=== PATIENT | male | born 1965 | race Caucasian/White ===

== ENCOUNTER → 2021-08-06 11:29 | Outpatient (CLI) | payer BC, SELFPAY ==
--- NOTE | 2021-08-06 11:46 | DI.RAD_ITS ---
Exam(s) XR WRIST RT COMPLETE EXAM: XR WRIST RT COMPLETE CLINICAL HISTORY: PAIN IN RT WRIST TECHNIQUE: COMPARISON: No exams were available for comparison FINDINGS: Three views were obtained. Alignment appears within normal limits. No fracture identified. IMPRESSION: RADIATION DOSE DELIVERED: Total DLP
--- NOTE | 2021-08-06 12:03 | DI.VRAD_ITS ---
PROCEDURE INFORMATION: Exam: XR Right Wrist Exam date and time: 08/06/2021 11:41 AM Age: 56 years old Clinical indication: Pain; Wrist; Right; Patient HX: Fall while hiking 1 wk ago TECHNIQUE: Imaging protocol: XR Right wrist. Views: 3 or more views. COMPARISON: No relevant prior studies available. FINDINGS: Bones/joints: Normal. Soft tissues: Normal. IMPRESSION: No acute findings. Dictated and Authenticated by: David Jim MD. Ordering:MARY Barahona MD
== END ==
PROVIDERS: PCP Nurse Practitioner Family; Visit Provider Nurse Practitioner Family
DX: M25.531 Pain in right wrist (principal)
CPT/HCPCS: 73110

== ENCOUNTER 2021-08-17 03:07 | Outpatient (CLI) | payer BC, SELFPAY ==
[2021-08-17 09:11] LABS: Hemoglobin A1C 5.4 % (<5.7)
[2021-08-17 09:49] LABS: Calculated LDL 102 mg/dL (<100); Cholesterol 187 mg/dL (<200); HDL Cholesterol 51 mg/dL (40-60); Triglyceride 173 mg/dL (<150)
[2021-08-17 20:22] LABS: PSA, Screening 1.1 ng/mL (<=3.5)
== END 2021-08-17 03:08 | disposition home or self-care (01) ==
LOC: LBO 03:07
PROVIDERS: PCP Nurse Practitioner Family; Visit Provider Nurse Practitioner Family
DX: Z13.1 Encounter for screening for diabetes mellitus (principal); Z13.220 Encounter for screening for lipoid disorders; Z12.5 Encounter for screening for malignant neoplasm of prostate
CPT/HCPCS: 36415; 80061; 84153; 83036

== ENCOUNTER 2022-04-07 01:40 | Outpatient (CLI) | payer BC, SELFPAY ==
[2022-04-07 12:19] LABS: CREATININE 0.9 mg/dL (0.70-1.30); Estimated GFR 100.24 (mL/min/1.73m2)
== END 2022-04-07 01:41 | disposition home or self-care (01) ==
LOC: LBO 01:40
PROVIDERS: PCP Nurse Practitioner Family; Visit Provider Nurse Practitioner Family
DX: I10 Essential (primary) hypertension (principal)
CPT/HCPCS: 36415; 82565

== ENCOUNTER 2023-02-16 02:06 | Outpatient (CLI) | payer BC, SELFPAY ==
[2023-02-16 12:40] LABS: CREATININE 0.9 mg/dL (0.70-1.30); Calculated LDL 97 mg/dL (<100); Cholesterol 190 mg/dL (<200); Estimated GFR 100.24 (mL/min/1.73m2); HDL Cholesterol 49 mg/dL (40-60); Triglyceride 223 mg/dL (<150)
== END 2023-02-16 02:07 | disposition home or self-care (01) ==
PROVIDERS: PCP Nurse Practitioner Family; Visit Provider Nurse Practitioner Family
DX: I10 Essential (primary) hypertension (principal); E78.5 Hyperlipidemia, unspecified
CPT/HCPCS: 36415; 80061; 82565; 84132

== ENCOUNTER → 2023-10-17 04:03 | Outpatient (CLI) | payer BC, SELFPAY ==
--- NOTE | 2023-10-17 14:48 | DI.RAD_ITS ---
Exam(s) XR FOOT RT COMPLETE EXAM: XR FOOT RT COMPLETE CLINICAL HISTORY: Right great toe pain, RT FOOT PAIN, M79.671, M79.674. TECHNIQUE: 2D digital imaging was performed. Three views. COMPARISON: CR RIGHT FOOT COMPLETE from 07/02/2013 CR XR FOOT LT COMPLETE from 10/17/2023 FINDINGS: BONES: No acute fracture is present. No bony destructive lesion is seen. Stable appearance of ossicl e at the base of the 5th metatarsal. Tiny heel spurs. JOINTS: No dislocation present. Moderate degenerative changes of 1st MTP joint. Plantar arch is yahir ntained. SOFT TISSUE: Normal. 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 DATA REPOSITORY: RADIATION DOSE DELIVERED:
--- NOTE | 2023-10-17 14:48 | DI.RAD_ITS ---
Exam(s) XR FOOT LT COMPLETE EXAM: XR FOOT LT COMPLETE CLINICAL HISTORY: Left great toe pain, LT FOOT PAIN, M79.672, M79.675. TECHNIQUE: 2D digital imaging was performed. Three views. COMPARISON: CR RIGHT FOOT COMPLETE from 07/02/2013 FINDINGS: BONES: No acute fracture is present. No bony destructive lesion is seen. Small accessory navicular. Small heel spurs. JOINTS: No dislocation present. 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 SOFT TISSUE: Normal. 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 DATA REPOSITORY: RADIATION DOSE DELIVERED:
== END ==
PROVIDERS: PCP Nurse Practitioner Family; Visit Provider Podiatrist
DX: M79.671 Pain in right foot (principal); M79.672 Pain in left foot
CPT/HCPCS: 73630

== ENCOUNTER 2024-01-25 09:55 | Outpatient (CLI) | payer BC, SELFPAY ==
[2024-01-25 10:35] LABS: CREATININE 0.9 mg/dL (0.70-1.30); Calculated LDL 86 mg/dL (<100); Cholesterol 162 mg/dL (<200); Estimated GFR 99.62 (mL/min/1.73m2); HDL Cholesterol 45 mg/dL (40-60); Potassium 4.1 mmol/L (3.5-5.1); Triglyceride 159 mg/dL (<150)
[2024-01-25 10:44] LABS: Hemoglobin A1C 5.3 % (<5.7)
[2024-01-25 19:43] LABS: PSA, Screening 0.7 ng/mL (<=3.5)
== END 2024-01-25 09:56 | disposition home or self-care (01) ==
LOC: LBO 09:58
PROVIDERS: PCP Nurse Practitioner Family; Visit Provider Nurse Practitioner Family
DX: I10 Essential (primary) hypertension (principal); Z13.220 Encounter for screening for lipoid disorders; Z12.5 Encounter for screening for malignant neoplasm of prostate; Z13.1 Encounter for screening for diabetes mellitus; Z00.00 Encounter for general adult medical examination without abnormal findings; E78.2 Mixed hyperlipidemia
CPT/HCPCS: 36415; 80061; 84153; 82565; 83036; 84132

== ENCOUNTER 2025-01-26 09:13 | Outpatient (CLI) | payer BC, SELFPAY ==
--- NOTE | 2025-01-26 09:00 | RT.EKG_ITS ---
APPROVED REPORT Exam: Resting ECG Reason for Exam: [facility] Patient Location: HR:73 bpm ECG Measurements Heart Rate 73 AXIS NE 169 P 19 QRSd 107 QRS 7 QT 397 T 13 QTc 438 Conclusion Sinus rhythm...normal P axis, V-rate 50- 99 Normal Electrocardiogram
== END 2025-01-26 09:14 | disposition home or self-care (01) ==
LOC: DI.CM 09:15
PROVIDERS: PCP Nurse Practitioner Family; Visit Provider Nurse Practitioner Family
DX: Z00.00 Encounter for general adult medical examination without abnormal findings (principal)
CPT/HCPCS: 93010

== ENCOUNTER 2025-01-27 02:47 | Outpatient (CLI) | payer BC, SELFPAY ==
[2025-01-27 09:38] LABS: Hemoglobin A1C 5.1 % (<5.7)
[2025-01-27 09:58] LABS: Anion Gap 7.3 mmol/L (3-11); BUN 12 mg/dL (7-18); CO2 29.7 mmol/L (21.0-32.0); Calcium 9.1 mg/dL (8.5-10.1); Calculated LDL 82 mg/dL (<100); Chloride 105 mmol/L (98-107); Cholesterol 171 mg/dL (<200); Estimated GFR 102.58 (mL/min/1.73m2); Glucose 95 mg/dL (74-106); HDL Cholesterol 46 mg/dL (>or=40); Potassium 4.1 mmol/L (3.5-5.1); Sodium 142 mmol/L (136-145); TSH (W/Ref FT4) 2.11 uIU/mL (0.36-3.74); Triglyceride 215 mg/dL (<150)
[2025-01-27 19:21] LABS: PSA, Screening 0.9 ng/mL (<=3.5)
[2025-02-03 15:30] LABS: Testosterone, Free 77.0 pg/mL (35.0-155.0)
== END 2025-01-27 02:48 | disposition home or self-care (01) ==
LOC: LBO 02:48
PROVIDERS: PCP Nurse Practitioner Family; Visit Provider Nurse Practitioner Family
DX: E03.9 Hypothyroidism, unspecified (principal); Z12.5 Encounter for screening for malignant neoplasm of prostate; Z13.220 Encounter for screening for lipoid disorders; Z13.1 Encounter for screening for diabetes mellitus; E29.1 Testicular hypofunction; I10 Essential (primary) hypertension
CPT/HCPCS: 36415; 80048; 80061; 84153; 84402; 84403; 83036; 84443